=== PATIENT | male | born 1965 | race Caucasian/White ===

== ENCOUNTER 2016-11-24 10:13 | Inpatient (IN) | payer OTHER ==
[2016-11-24] MEDS ORDERED: ASPIRIN 81 MG CHEW ONE (11:24)
[2016-11-24] MEDS ORDERED: ASPIRIN 81 MG CHEW PO ONE (11:56)
[2016-11-24] MEDS ORDERED: SODIUM CHLORIDE 0.9% 1,000 ML IV ONE (12:00)
[2016-11-24] MEDS ORDERED: IV FLUID CONTINUATION 1,000 ML IV ONE (13:25)
[2016-11-24] MEDS: MIDAZOLAM 2 MG/2 ML VIAL IVP ONE ×2 (13:30→13:39)
[2016-11-24] MEDS ORDERED: diphenhydrAMINE 50 MG/ML 1 ML VIAL IVP ONE (13:30)
[2016-11-24] MEDS ORDERED: LIDOCAINE 2% INJ 20 MG/ML SQ ONE (13:34)
[2016-11-24] MEDS ORDERED: fentaNYL (PF) 50 MCG/ML 2 ML AMP IV ONE (13:35)
[2016-11-24] MEDS ORDERED: BIVALIRUDIN BOLUS 250 MG/50 ML IV ONE (14:22)
[2016-11-24] MEDS ORDERED: BIVALIRUDIN 250 MG in SODIUM CHLORIDE 0.9% 50 ML IV ONE (14:24)
[2016-11-24] MEDS: NITROGLYCERIN 1000MCG/10ML SYRINGE INTRACORON ONE ×2 (14:27→14:34)
[2016-11-24] MEDS ORDERED: TICAGRELOR 90 MG TAB PO ONE (14:28)
[2016-11-24] MEDS ORDERED: niCARdipine Syringe (1,000 mcg/10 mL) INTRACORON ONE (14:34)
[2016-11-24] MEDS ORDERED: IOHEXOL 350 MG/ML 100 ML BOTTLE INJ ONE (14:43)
[2016-11-24] MEDS ORDERED: NITROGLYCERIN SL TABS 0.4 MG TAB SUBLINGUAL PRN (14:50)
[2016-11-24] MEDS ORDERED: MAG HYDROX/AL HYDROX/SIMETH 30 ML CUP PO PRN (14:50)
[2016-11-24] MEDS ORDERED: ZOLPIDEM 5 MG TAB PO PRN (14:50)
[2016-11-24] MEDS ORDERED: RX INFO: IV CONTRAST WAS GIVEN 1 EACH MISC MISCELLANE PRN (14:50)
[2016-11-24] MEDS ORDERED: ALPRAZolam 0.5 MG TAB PO PRN (17:31)
[2016-11-24] MEDS ORDERED: ALPRAZolam 0.25 MG TAB PO PRN (17:31)
[2016-11-24] MEDS ORDERED: SODIUM CHLORIDE 0.9% 1,000 ML in EMPTY BAG 1 BAG IV ONE (17:31)
[2016-11-24] MEDS: SODIUM CHLORIDE 0.9% 1,000 ML IV SCH ×2 (18:08→23:06)
[2016-11-24 20:24] VITALS: RESP 16
[2016-11-24] MEDS: ATORVASTATIN 40 MG TAB PO SCH (20:26)
[2016-11-24] MEDS: METOPROLOL TARTRATE 25 MG TAB PO SCH (20:26)
--- NOTE | 2016-11-24 22:15 | CC ---
Mr. Wilson is a 51-year-old gentleman who came to the hospital with symptoms of non-ST segment elevation myocardial infarction. Patient's EKG did not show any significant changes. In view of that, the patient was transferred over here for the cardiac catheterization. PROCEDURE: The right groin was prepped and in the usual manner and the skin was infiltrated with 2% Xylocaine. The right femoral artery was entered using Seldinger technique. A #6 Danish sheath was placed in. Selective coronary angiography was then performed in multiple projections and the left ventriculography was performed in 30-degree GONZALEZ projection. Patient tolerated the procedure well. HEMODYNAMICS: Left ventricular end-diastolic pressure is 12 to 16 mmHg prior to angiography and the same post angiography. No gradient was noted across the aortic valve. SELECTIVE CORONARY ANGIOGRAPHY: Left main coronary normal and patent. LAD is a good-caliber blood vessel and gives rise to a good-sized diagonal branch. LAD and its branches are normal. Circumflex coronary artery is a good caliber blood vessel and gives rise to a good-sized obtuse marginal branch. Obtuse marginal branch is subtotally occluded with SONIA 2 flow noted in the obtuse marginal branch. Right coronary artery is normal. Left ventriculography reveals normal left ventricular systolic function. FINAL IMPRESSION: This study shows subtotal occlusion of the proximal obtuse marginal branch of the circumflex with SONAI 2 flow. RECOMMENDATIONS: Will review the film with Dr. Sanchez and proceed with a stent to the OM branch.
[2016-11-25 06:12] LABS: Basophils % (A) 1 %; CH 30.9; Eosinophils # (A) 0.1 k/uL (0-0.7); Eosinophils % (A) 3 %; HCT 44.1 % (39.0-53.0); HDW 2.31; HGB 14.4 gm/dL (13.0-17.5); Luc # (Auto) 0.12; Luc % (Auto) 3; Lymphocytes # (A) 0.7 k/uL (1.0-4.8); Lymphocytes % (A) 16 %; MCH 29.9 pg (25.0-35.0); MCHC 32.7 g/dL (31.0-37.0); MCV 91.3 fL (80.0-100.0); Mean Platelet Volume 7.2; Monocytes # (A) 0.5 k/uL (0-1.0); Monocytes % (A) 12 %; Neutrophils # (A) 2.7 k/uL (1.3-7.7); Neutrophils % (A) 65 %; RBC 4.83 m/uL (4.30-5.90); RDW 13.1 % (11.5-15.5); WBC 4.2 k/uL (3.8-10.6); WBC (Perox) 4.13
[2016-11-25 06:29] LABS: Anion Gap 10 mmol/L; Blood Urea Nitrogen 17 mg/dL (9-20); Carbon Dioxide 26 mmol/L (22-30); Chloride 104 mmol/L (98-107); Glucose 111 mg/dL (74-99); Non-African American GFR(MDRD) >60 (>60 ml/min/1.73 sqM); Potassium 4.7 mmol/L (3.5-5.1); Sodium 140 mmol/L (137-145)
[2016-11-25] MEDS: ASPIRIN 81 MG CHEW PO SCH (08:07)
[2016-11-25] MEDS: METOPROLOL TARTRATE 25 MG TAB PO SCH ×2 (08:07→20:37)
[2016-11-25] MEDS: CHOLECALCIFEROL 1,000 UNIT TAB PO SCH (08:08)
[2016-11-25] MEDS: TICAGRELOR 90 MG TAB PO SCH ×2 (08:08→20:37)
--- NOTE | 2016-11-25 10:54 | PTCA ---
DATE OF SERVICE: November 24, 2016 Performing physician: Anthony Sanchez M.D., land leasing examiner. PROCEDURE PERFORMED: Successful stenting of first obtuse marginal branch of the left circumflex using 2.5 x 33 mm Xience DAPHNE with a good angiographic results. INDICATION: This is a pleasant 51-year-old gentleman who was admitted to [facility] with chest discomfort and was ruled in for acute non-ST elevation myocardial infarction and underwent a heart catheterization by Dr. Salina Strickland where he was found to have occluded first obtuse marginal branch of the left circumflex. The decision was made toward percutaneous coronary intervention. Approach: Right common femoral artery. COMPLICATIONS: None. Level of sedation: Moderate. PROCEDURE DESCRIPTION: After diagnostic heart catheterization was performed by Dr. Salina Strickland and after reviewing the angiogram, we decided to intervene on the first OM of the left circumflex. Anticoagulation was initiated using Angiomax. Subsequently, I took JL 35 guiding catheter, and the left main was engaged. I wired the first OM using a Whisper wire. Subsequently, I did PTCA ballooning using 2.0 x 12 mm balloon. Then I deployed 2.5 x 33 mm Xience DAPHNE, where the stent was positioned under fluoroscopy guidance, then it was deployed under 10 atmospheres for 20 seconds. The following angiogram showed an excellent angiographic result without perforation and without dissection with SONIA-3 flow. CONCLUSION: 1. Acute [id number] myocardial infarction. 2. Severe single-vessel coronary artery disease involving the first obtuse marginal branch of the left circumflex, which is occluded. 3. Successful stenting of the first OM using 2.5 x 33 mm Xience DAPHNE with a good angiographic results. POSTPROCEDURE MANAGEMENT: 1. Dual antiplatelet therapy. 2. Risk factor modification. 3. Follow up with the patient.
--- NOTE | 2016-11-25 11:30 | P.PN ---
Subjective Principal diagnosis: non-STEMI this is a 51-year-old gentleman who presented to [facility] with a non-ST elevation myocardial infarction. He was transferred here where he underwent a cardiac catheterization by Dr. VC Strickland area subsequent to that patient underwent angioplasty with stenting of the circumflex yesterday. he was seen and examined this morng, denies any chest pain or difficulty in breathing. EKG shows normal sinus rhythm with no changes from post-PCI. blood pressure this morning 105/56, heart rate in the 60's. platelet count 200, potassium 4.7, BUN 17, creatinine 1.0. Objective - Vital Signs Vital signs: Vital Signs Temp 96.7 F L 11/25/16 08:00 Pulse 62 11/25/16 08:00 Resp 16 11/25/16 08:00 BP 104/55 11/25/16 08:00 Pulse Ox 95 11/25/16 08:00 Intake & Output 11/24/16 11/25/16 11/25/16 18:59 06:59 18:59 Intake Total 425.96 Output Total 300 Balance 125.96 Weight 101.5 kg 103.5 kg Intake: IV 425.96 Sodium Chloride 0.9% 1, 150 000 ml @ 75 mls/hr IV . [id number] NOAH Rx#:[id number] Output: Urine 300 Other: # Voids 1 - Exam PHYSICAL EXAMINATION: HEENT: Head is atraumatic, normocephalic. Pupils equal, round. Neck is supple. There is no elevated jugular venous pressure. HEART EXAMINATION: Heart S1, S2 normal. No murmur or gallop heard. CHEST EXAMINATION: Lungs are clear to auscultation and precussion. No chest wall tenderness is noted on palpation or with deep breathing. ABDOMEN: Soft, nontender. Bowel sounds are heard. No organomegaly noted. Right groin soft, no evidence of any hematoma, mild ecchymosis noted. EXTREMITIES: 2+ peripheral pulses with no evidence of peripheral edema and no calf tenderness noted. NEUROLOGIC patient is awake, alert and oriented -3. . - Labs CBC & Chem 7: 11/25/16 05:34 11/25/16 05:34 Labs: Abnormal Lab Results - Last 24 Hours (Table) 11/25/16 11/25/16 Range/Units 05:34 05:34 Lymphocytes # 0.7 L (1.0-4.8) k/uL Glucose 111 H (74-99) mg/dL Assessment and Plan (1) NSTEMI (non-ST elevated myocardial infarction) Status: Acute (2) Presence of stent in left circumflex coronary artery Status: Acute (3) HTN (hypertension) Status: Acute (4) Hyperlipemia Status: Acute Plan: From cardiology's perspective, we'll continue the patient on his current medications. He is currently not on an DEANDRE inhibitor because of mild hypotension. This will be reevaluated in the office post discharge. We will plan on possible discharge home in 24 hours if stable, follow-up appointment will be made with Dr. VC Strickland in the office post discharge. DNP note has been reviewed, I agree with a documented findings and plan of care. Patient was seen and examined.
--- NOTE | 2016-11-25 11:36 | HP ---
DATE OF ADMISSION: CHIEF COMPLAINT: Chest pain. HISTORY OF PRESENT ILLNESS: This is a 51-year-old male who presented to [facility] with new onset chest pain that happened when he was ( ) in front of his house. The patient is healthy person who exercises 3 times a week on the treadmill for 30 minutes and does some weight lifting. ( ) yesterday he felt chest burning sensation located to the mediastinum when he started ( ) in his garage. The patient said that the pain was burning, radiating to his neck, jaw and both shoulders. Patient felt that the pain was not going away, took his Zantac without improvement which improved after getting some rest. Patient felt that this could be related acid reflux disease and went back to his garage and started doing the same thing again and when the pain started again, patient felt it necessary to go to the emergency and took 2 aspirin 81 mg from his house and went to the emergency, where he was evaluated and his troponin was elevated. The patient was evaluated by Cardiology and was transferred to [facility] for cardiac catheterization. REVIEW OF SYSTEMS: Negative except as above. All 14 systems were reviewed. PAST MEDICAL HISTORY: Acid reflux disease. PAST SURGICAL HISTORY: None. FAMILY HISTORY: Significant for a CABG in his mother and congestive heart failure. Father who father who of aging. SOCIAL HISTORY: The patient denied tobacco or drug abuse. Said that he drinks 4 to 6 beers a day and a little bit more on the weekend. ALLERGIES: No known drug allergies. HOME MEDICATIONS: Zantac as needed. PHYSICAL EXAMINATION: VITAL SIGNS: 96.7 this morning, heart rate 62, respiratory rate 16, blood pressure 104/55, 95% on room air. GENERAL: ( ). HEENT: Atraumatic, normocephalic. PERRLA. NECK: Supple, no masses. No thyromegaly. LUNGS: Clear to auscultation bilaterally. HEART: Normal S1, S2. ABDOMEN: Soft, no tenderness. Positive bowel sounds in all quadrants. LOWER EXTREMITIES: No edema. PSYCH: Alert and oriented x3. IMAGING AND LABS: Troponin was elevated as mentioned above. CBC within acceptable range. Chem-7 within acceptable range. EKG showed nonspecific ST and T wave abnormality. Chest x-ray was no acute process. ASSESSMENT AND PLAN: 1. Non-ST elevation myocardial infarction, status post cardiac catheterization with stent placement to obtuse marginal. Patient currently will be maintained on his ( ) medication including aspirin, statin and beta mia. Patient was started on Brilinta by Cardiology. Understands that he needs to be maintained on those medications on a daily and understands the risk of thrombosis in the stent if he missed his Brilinta dose. The patient feels strong and was able to ambulate without difficulty. He feels like he would like to go home and follow up with his primary care physician closely outpatient. 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 2. Hypertension, seems to be controlled. Will continue with beta mia. 3. Hyperlipidemia. Will continue with statin. 4. Alcohol dependence. Patient counseled regarding moderate alcohol use and he is willing to cooperate and lower his oral intake on a daily basis. DISCHARGE PLANNING: This afternoon after evaluation by Cardiology.
[2016-11-25] MEDS: ATORVASTATIN 40 MG TAB PO SCH (20:36)
[2016-11-26] MEDS: METOPROLOL TARTRATE 25 MG TAB PO SCH (07:51)
[2016-11-26] MEDS: TICAGRELOR 90 MG TAB PO SCH (07:51)
[2016-11-26] MEDS: CHOLECALCIFEROL 1,000 UNIT TAB PO SCH (07:52)
[2016-11-26] MEDS: ASPIRIN 81 MG CHEW PO SCH (07:52)
[2016-11-26 08:04] VITALS: BP 111/59; PULSE 65; TEMP 97.6
--- NOTE | 2016-11-26 19:06 | ECHOF ---
Referral Reason:post MD MEASUREMENTS -------- HEIGHT: 188.0 cm WEIGHT: 103.4 kg BP: 104/55 RVIDd: 3.0 cm (< 3.3) IVSd: 1.0 cm (0.6 - 1.1) LVIDd: 4.4 cm (3.9 - 5.3) LVPWd: 1.1 cm (0.6 - 1.1) IVSs: 1.7 cm LVIDs: 3.0 cm LVPWs: 1.7 cm LA Diam: 4.0 cm (2.7 - 3.8) LAESV Index (A-L): 25.32 ml/m Ao Diam: 3.1 cm (2.0 - 3.7) AV Cusp: 2.1 cm (1.5 - 2.6) MV EXCURSION: 16.399 mm (> 18.000) MV EF SLOPE: 61 mm/s (70 - 150) EPSS: 0.3 cm MV E Uche: 0.80 m/s MV DecT: 280 ms MV A Uche: 0.88 m/s MV E/A Ratio: 0.91 RAP: 5.00 mmHg RVSP: 23.58 mmHg FINDINGS -------- Sinus rhythm. This was a technically excellent study. The left ventricular size is normal. There is borderline concentric left ventricular hypertrophy. Overall left ventricular systolic function is normal with, an EF between 60 - 65 %. The right ventricle is normal in size. The left atrium is normal in size. Normal LA size by volume 22+/-6 ml/m2. The right atrium is normal in size. The aortic valve is trileaflet and appears structurally normal. There is trace to mild mitral regurgitation. Mild tricuspid regurgitation present. Right ventricular systolic pressure is normal at < 35 mmHg. The pulmonic valve was not well visualized. The aortic root size is normal. The inferior vena cava is mildly dilated. There is no pericardial effusion. CONCLUSIONS -------- 1. Sinus rhythm. 2. There is trace to mild mitral regurgitation. 3. Mild tricuspid regurgitation present. 4. Right ventricular systolic pressure is normal at < 35 mmHg. 5. The pulmonic valve was not well visualized. 6. The aortic root size is normal. 7. The inferior vena cava is mildly dilated. 8. There is no pericardial effusion. 9. This was a technically excellent study. 10. The left ventricular size is normal. 11. There is borderline concentric left ventricular hypertrophy. 12. Overall left ventricular systolic function is normal with, an EF between 60 - 65 %. 13. The right ventricle is normal in size. 14. Normal LA size by volume 22+/-6 ml/m2. 15. The right atrium is normal in size. 16. The aortic valve is trileaflet and appears structurally normal. ELEMENTARY ASSISTANT TEACHER: Neli Larsen RDCS
--- NOTE | 2016-11-26 20:22 | PN ---
The patient was kept overnight yesterday per cardiology for ensuring safety after his recent non-ST elevation myocardial infarction. The patient currently is ambulating in the room denying chest or shortness of breath, nausea or vomiting, abdominal pain, ( ) or blurry vision. PHYSICAL EXAMINATION: Vital signs on stable. Lungs clear to auscultation bilaterally. Cardiovascular: S1, S2. Abdomen soft, ( ). SKIN: No new rash. Lower extremity no edema. Psychiatry: Alert and oriented times three. Imaging and labs: Reviewed. ASSESSMENT AND PLAN: 1. Non-ST elevation myocardial infarction. 2. Hypertension. 3. Hyperlipidemia. 4. Alcohol dependence. 5. Discharge planning today per cardiology recommendation. 6. Counseling for the patient regarding medications adherence. 7. Close follow-up with primary care physician. ( ) intake was done at the bedside.
--- NOTE | 2016-12-29 08:31 | DS ---
DATE OF ADMISSION: 11/24/2016 DATE OF DISCHARGE: 11/26/2016 ADMITTING DIAGNOSES: 1. Non-ST elevation myocardial infarction. 2. Hypertension. 3. Hyperlipidemia. 4. Alcohol dependence. DISCHARGE DIAGNOSES: 1 Non-ST elevation myocardial infarction. 2 Hypertension. 3 Hyperlipidemia. 4 Alcohol dependence. CONSULTATION: Dr. Blair from cardiology. HOSPITAL COURSE: The patient presented to the hospital with chest pain. Patient was evaluated with cardiology and was diagnosed with non-ST elevation RI. Patient stabilized and felt stable from the medical standpoint for discharge and to follow up with his primary care physician closely.
== END 2016-11-26 13:10 | disposition home or self-care (01) | DRG 247 ==
LOC: 2ORMAIN 11:45 → 6SEL 16:38
PROVIDERS: ADMIT Internal Medicine; ATTEND Internal Medicine
PROC: B2111ZZ Fluoroscopy of Multiple Coronary Arteries using Low Osmolar Contrast (ICD-10-PCS; 2016-11-24)
PROC: B2151ZZ Fluoroscopy of Left Heart using Low Osmolar Contrast (ICD-10-PCS; 2016-11-24)
PROC: 027034Z Dilation of Coronary Artery, One Artery with Drug-eluting Intraluminal Device, Percutaneous Approach (ICD-10-PCS; principal; 2016-11-24 13:12)
PROC: 4A023N7 Measurement of Cardiac Sampling and Pressure, Left Heart, Percutaneous Approach (ICD-10-PCS; 2016-11-24 13:12)
DX: I21.4 Non-ST elevation (NSTEMI) myocardial infarction (principal); I95.9 Hypotension, unspecified; I10 Essential (primary) hypertension; E78.5 Hyperlipidemia, unspecified; I25.10 Atherosclerotic heart disease of native coronary artery without angina pectoris; K21.9 Gastro-esophageal reflux disease without esophagitis; F10.20 Alcohol dependence, uncomplicated; Z71.41 Alcohol abuse counseling and surveillance of alcoholic; Z82.49 Family history of ischemic heart disease and other diseases of the circulatory system; Z88.0 Allergy status to penicillin
CPT/HCPCS: 80048; 85025; 93306; 93458